=== PATIENT | female | born 1950 | race African-American/Black ===

== ENCOUNTER 2025-01-21 17:04 | Emergency (ER) | payer OTHER ==
[~2025-01-21] VITALS: Ht 167.6 cm; Wt 91.0 kg
[2025-01-21 17:24] VITALS: TEMP 36.9; O2SAT 100
[2025-01-21] MEDS ORDERED: TRAM50TA3 MT (18:22)
[2025-01-21] MEDS: KETOROLAC 30MG/ML VIAL IM ONE (18:22)
[2025-01-21] MEDS ORDERED: KETO10TA2 MT (18:22)
[2025-01-21] MEDS ORDERED: METH-653 MT (18:22)
[2025-01-21 18:51] VITALS: BP 141/87; PULSE 85; RESP 18; O2SAT 100
== END 2025-01-21 18:51 | disposition home or self-care (01) ==
LOC: ER 17:04
DX: G89.29 Other chronic pain (principal); M54.50 Low back pain, unspecified; Z79.899 Other long term (current) drug therapy
CPT/HCPCS: 99283; 96372; J1885